=== PATIENT | female | born 1970 | race Caucasian/White ===

== ENCOUNTER 2018-06-05 05:32 | Inpatient (IN) | payer OTHER ==
[~2018-06-05] VITALS: Ht 170.2 cm; Wt 113.8 kg
[2018-06-05] MEDS ORDERED: BUPIVACAINE 0.25% ONE (06:47)
[2018-06-05] MEDS ORDERED: LIDOCAINE-MPF 1%, 5ML ONE (06:48)
[2018-06-05] MEDS ORDERED: VANCOMYCIN 1,000 MG ONE (06:48)
[2018-06-05] MEDS ORDERED: THROMBIN 5,000 UNIT VIAL TP ONE (06:48)
[2018-06-05] MEDS ORDERED: EPINEPHRINE 1 MG/ML, 1ML ONE (06:48)
[2018-06-05] MEDS ORDERED: LACTATED RINGERS 1,000 ML IV SCH (06:49)
[2018-06-05 06:51] VITALS: BP 107/71
[2018-06-05] MEDS ORDERED: MIDAZOLAM 1 MG/ML, 2ML ONE (06:57)
[2018-06-05] MEDS ORDERED: FENTANYL PF 250 MCG/5ML ONE (06:58)
[2018-06-05] MEDS ORDERED: LITH300C PO (07:04)
[2018-06-05] MEDS ORDERED: GABA300C10 PO (07:07)
[2018-06-05] MEDS ORDERED: MELO7.5T31 PO (07:07)
[2018-06-05] MEDS ORDERED: QUET300T5 PO (07:07)
[2018-06-05] MEDS ORDERED: GABAPENTIN 300 MG CAPSULE PO ONE (07:30)
[2018-06-05] MEDS ORDERED: OxyconTIN ER 10 MG TAB.ER PO ONE (07:30)
[2018-06-05] MEDS ORDERED: ACETAMINOPHEN 500 MG TABLET PO ONE (07:30)
[2018-06-05] MEDS ORDERED: DEXAMETHASONE 4 MG/ML, 1ML ONE (07:43)
[2018-06-05] MEDS ORDERED: PROPOFOL 10 MG/ML, 20ML ONE (07:43)
[2018-06-05] MEDS ORDERED: ROCURONIUM 10 MG/ML,10ML ONE (07:43)
[2018-06-05] MEDS ORDERED: GLYCOPYRROLATE 0.2MG/1ML, 5ML ONE (07:43)
[2018-06-05] MEDS ORDERED: ONDANSETRON 2MG/ML, 2ML ONE (07:43)
[2018-06-05] MEDS ORDERED: CEFAZOLIN 1,000 MG ONE (07:43)
[2018-06-05] MEDS ORDERED: NEOSTIGMINE 1 MG/ML, 10ML ONE (07:43)
[2018-06-05] MEDS ORDERED: SUCCINYLCHOLINE 20 MG/ML, 10ML ONE (07:43)
[2018-06-05] MEDS ORDERED: PROMETHAZINE 25 MG/ML, 1ML IV PRN (08:30)
[2018-06-05] MEDS ORDERED: hydrALAzine 20 MG/ML, 1ML IV PRN (08:30)
[2018-06-05] MEDS ORDERED: MEPERIDINE/PF 25MG/0.5ML IVPush PRN (08:30)
[2018-06-05] MEDS ORDERED: OXYcodone 5 MG/5 ML ORAL.SOL UDC PO PRN (08:30)
[2018-06-05] MEDS ORDERED: METOCLOPRAMIDE 5 MG/ML, 2ML IV PRN (08:30)
[2018-06-05] MEDS ORDERED: LABETALOL 5MG/ML, 20ML IV PRN (08:30)
[2018-06-05] MEDS ORDERED: ALBUTEROL SULFATE 2.5 MG/3 ML NPPB PRN (08:30)
[2018-06-05] MEDS ORDERED: ONDANSETRON 2MG/ML, 2ML IVPush PRN (08:30)
[2018-06-05] MEDS ORDERED: KETOROLAC 30 MG/1 ML IV PRN (08:30)
[2018-06-05] MEDS ORDERED: FENTANYL PF 100 MCG/2ML IV PRN (08:30)
[2018-06-05] MEDS ORDERED: LIDOCAINE 1%, 10ML INFIL ONE (08:34)
[2018-06-05] MEDS ORDERED: VANCOMYCIN 1,000 MG IM ONE (08:35)
[2018-06-05] MEDS ORDERED: EPINEPHRINE 1 MG/ML, 1ML INFIL ONE (08:35)
[2018-06-05] MEDS ORDERED: OXYcodone 5 MG/5 ML ORAL.SOL UDC ONE (10:27)
[2018-06-05] MEDS ORDERED: HYDROmorphone 2 MG/ML, 1ML ONE (10:27)
[2018-06-05] MEDS: HYDROmorphone 2 MG/ML, 1ML IV PRN ×2 (10:30→10:51)
[2018-06-05 11:30] VITALS: BP 123/75
[2018-06-05] MEDS ORDERED: MAGNESIUM HYDROXIDE 8%, 30ML UDC PO PRN (12:00)
[2018-06-05] MEDS ORDERED: PROMETHAZINE 25 MG/ML, 1ML IM PRN (12:00)
[2018-06-05] MEDS ORDERED: ONDANSETRON 2MG/ML, 2ML IV PRN (12:00)
[2018-06-05] MEDS ORDERED: BISACODYL 10 MG SUPP PR PRN (12:00)
[2018-06-05] MEDS: morphine SULFATE 10 MG/ML, 1ML IV PRN ×5 (12:08→21:54)
[2018-06-05 12:18] VITALS: BP 123/72
[2018-06-05] MEDS: D5%-0.9% NACL+KCL 20MEQ 1,000 ML IV SCH ×2 (12:34→23:14)
[2018-06-05] MEDS: CEFAZOLIN PMX 1GM/50ML 50 ML IVPB SCH ×2 (16:04→23:57)
[2018-06-05] MEDS: HYDROcodone/APAP 5/325 TABLET PO PRN ×2 (17:55→21:55)
[2018-06-05 19:19] VITALS: BP 132/75
[2018-06-05] MEDS ORDERED: QUETIAPINE 100MG TABLET PO SCH (21:00)
[2018-06-05] MEDS ORDERED: LITHIUM CARBONATE 300 MG TABLET.ER PO SCH (21:00)
[2018-06-05] MEDS: GABAPENTIN 300 MG CAPSULE PO SCH (21:55)
[2018-06-06 01:33] VITALS: BP 104/70
[2018-06-06] MEDS ORDERED: MORPHINE SULFATE 4 MG/ML, 1ML ONE ×2 (03:02→06:46)
[2018-06-06] MEDS: morphine SULFATE 10 MG/ML, 1ML IV PRN ×2 (03:06→06:48)
[2018-06-06] MEDS: HYDROcodone/APAP 5/325 TABLET PO PRN (03:06)
[2018-06-06 04:30] VITALS: BP 101/67
[2018-06-06 06:55] VITALS: BP 115/80
[2018-06-06] MEDS: HYDROcodone/APAP 10/325 MG TABLET PO PRN ×2 (07:42→10:56)
[2018-06-06] MEDS: GABAPENTIN 300 MG CAPSULE PO SCH (07:42)
[2018-06-06] MEDS: D5%-0.9% NACL+KCL 20MEQ 1,000 ML IV SCH (08:00)
[2018-06-06] MEDS ORDERED: SENNA/DOCUSATE TABLET PO SCH (09:00)
[2018-06-06] MEDS ORDERED: HYDR-3307 PO (10:41)
[2018-06-06] MEDS ORDERED: DIAZ5TAB4 PO (10:41)
== END 2018-06-06 11:15 | disposition home or self-care (01) | DRG 473 ==
LOC: ORIP 05:32 → 4NOR 11:24 → DCLOUNGE 06-06 11:07
PROVIDERS: ADMIT Orthopaedic Surgery Orthopaedic Surgery of the Spine; ATTEND Orthopaedic Surgery Orthopaedic Surgery of the Spine
PROC: 0RB30ZZ Excision of Cervical Vertebral Disc, Open Approach (ICD-10-PCS; 2018-06-05)
PROC: 0RG10K0 Fusion of Cervical Vertebral Joint with Nonautologous Tissue Substitute, Anterior Approach, Anterior Column, Open Approach (ICD-10-PCS; principal; 2018-06-05 07:30)
DX: M47.22 Other spondylosis with radiculopathy, cervical region (principal); M48.02 Spinal stenosis, cervical region; F31.9 Bipolar disorder, unspecified; G89.29 Other chronic pain
CPT/HCPCS: 72040; J3490; C1713; J0171; J0690; J1100; J1170; J2250; J2405; J2704; J2710; J3010; J3370; C1762; J0330; J2270; J3480; J7120